=== PATIENT | male | born 1965 | race Caucasian/White ===

== ENCOUNTER 2022-05-02 08:46 | Day surgery (SDC) | payer OTHER ==
[~2022-05-02] VITALS: Ht 195.6 cm; Wt 106.2 kg
[~2022-05-02 08:46] MED LIST: CYCL10 PO; Cymbalta20 MG PO
== END 2022-05-02 11:35 | disposition home or self-care (01) ==
LOC: ORSCSDS 08:46
PROVIDERS: Internal Medicine Gastroenterology
PROC: 0DBN8ZX Excision of Sigmoid Colon, Via Natural or Artificial Opening Endoscopic, Diagnostic (ICD-10-PCS; principal; 2022-05-02 10:00)
DX: Z12.11 Encounter for screening for malignant neoplasm of colon (principal); Z80.0 Family history of malignant neoplasm of digestive organs; D12.5 Benign neoplasm of sigmoid colon; F17.210 Nicotine dependence, cigarettes, uncomplicated; Z79.899 Other long term (current) drug therapy
CPT/HCPCS: 88305; J2704; J7120

== ENCOUNTER 2024-05-18 20:30 | Inpatient (IN) | payer OTHER ==
[~2024-05-18] VITALS: Ht 195.6 cm; Wt 133.9 kg
[2024-05-18 21:13] LABS: Source, Urine Clean Catch
[2024-05-18 21:25] LABS: BASOPHILS ABSOLUTE AUTO 0.06 K/mm3 (0.00-0.23); BASOPHILS PERCENT AUTO 1 % (0-2); EOSINOPHILS ABSOLUTE AUTO 0.06 K/mm3 (0.00-0.68); EOSINOPHILS PERCENT AUTO 1 % (0-6); Hematocrit 29.3 % (37.0-53.0); IMMATURE GRAN ABSOLUTE AUTO 0.18 K/mm3 (0.00-0.10); IMMATURE GRAN PERCENT AUTO 2 % (0-1); LYMPHOCYTES ABSOLUTE AUTO 1.19 K/mm3 (0.84-5.20); LYMPHOCYTES PERCENT AUTO 10 % (21-46); MONOCYTES ABSOLUTE AUTO 0.93 K/mm3 (0.16-1.47); MONOCYTES PERCENT AUTO 8 % (4-13); Mean Corpuscular HGB 36.4 pg (26.0-34.0); Mean Corpuscular HGB Conc 37.5 g/dL (31.5-36.5); Mean Corpuscular Volume 97 fL (80-100); Mean Platelet Volume 10.6 fL (9.1-12.4); NEUTROPHILS ABSOLUTE AUTO 9.48 K/mm3 (1.96-9.15); NEUTROPHILS PERCENT AUTO 80 % (41-73); NRBC ABSOLUTE 0.08 K/mm3 (0.00-0.02); NRBC Auto 0.7 /100 WBC (0.0-0.2); Platelet Count 163 K/mm3 (150-400); RDW Coefficient Variation 17.6 % (11.7-14.2); RDW Standard Deviation 61.8 fL (35.1-46.3); Red Blood Cell Count 3.02 M/mm3 (4.30-5.90)
[2024-05-18 21:27] LABS: Appearance, Urine Cloudy (Clear); Blood, Urine 2+ (Neg); Color, Urine Amber (P-Yellow); Glucose Qualitative, Urine Neg (Neg); Ketones, Urine 2+ (Neg); Leukocyte Esterase, Urine 3+ (Neg); Nitrite, Urine Pos (Neg); Protein, Urine 2+ (Neg); Urobilinogen, Urine 4+ (Normal)
[2024-05-18 21:48] LABS: U Amphetamine Screen Not Detected; U Barbituate Screen Not Detected; U Benzodiazapine Screen Not Detected; U Buprenorphine Screen Not Detected; U Cannabinoids Screen Not Detected; U Cocaine Screen Not Detected; U Methadone Screen Not Detected; U Methamphetamine Screen Not Detected; U Opiates Screen Not Detected; U Oxycodone Screen Not Detected; U Phencyclidine Screen Not Detected
[2024-05-18 21:50] LABS: Bilirubin, Urine 3+ (Neg)
[2024-05-18 21:50] LABS: Ethanol (Alcohol), Blood, Med <3 mg/dL
[2024-05-18 21:52] LABS: Bacteria Many /hpf; Red Blood Cells, Urine 0-2 /hpf (0-2); Squamous Epithelial Cells Mod /hpf (Few); White Blood Cells, Urine 50-100 /hpf (0-5)
[2024-05-18] MEDS ORDERED: NS 1,000 ML IV SCH (22:00)
[2024-05-18] MEDS ORDERED: CefTRIAXone Sodium 1,000 MG in NS 50 ML IV ONE (22:00)
[2024-05-18] MEDS ORDERED: Thiamine HCl 100 MG Tab PO ONE (22:15)
[2024-05-18] MEDS ORDERED: Folic Acid 1 MG TAB PO ONE (22:15)
[2024-05-18 22:24] LABS: Alanine Aminotransfer (ALT/SGP 111 U/L (12-78); Albumin, Blood 2.4 g/dL (3.4-5.0); Albumin/Globulin Ratio 0.5 (0.8-1.8); Alk Phos 256 U/L (50-136); Anion Gap 19 mmol/L (3-11); Aspartate Aminotrans (AST/SGOT 219 U/L (12-37); Bilirubin, Total 8.8 mg/dL (0.1-1.0); Blood Urea Nitrogen 11 mg/dL (8-24); Bun/Creatinine Ratio 16.1 (12.0-20.0); CO2, Blood 22 mmol/L (21-32); Calcium, Blood 7.4 mg/dL (8.5-10.1); Chloride, Blood 77 mmol/L (98-108); Creatinine, Blood 0.68 mg/dL (0.60-1.20); Globulin, Blood 4.9 g/dL (2.2-4.0); Glomerular Filtration Rate 108 (60-); Glucose, Blood 103 mg/dL (70-99); Potassium, Blood 5.1 mmol/L (3.5-5.5); Sodium, Blood 113 mmol/L (136-145); Total Protein, Blood 7.3 g/dL (6.4-8.2)
[2024-05-18] MEDS ORDERED: Vancomycin HCL 1,750 MG in NS 518 ML IV ONE (22:40)
[2024-05-18] MEDS ORDERED: Folic Acid 1 MG in NS 50 ML IV ONE (22:55)
[2024-05-18] MEDS ORDERED: Sodium Chloride 3% 500 ML IV ONE (22:55)
[2024-05-18] MEDS ORDERED: Thiamine HCl 100 MG in NS 50 ML IV ONE (22:55)
[2024-05-18 23:17] LABS: Ethanol (Alcohol), Blood, Med <3 mg/dL
[2024-05-18] MEDS ORDERED: Sodium Chloride 3% 50 ML IV ONE (23:45)
[2024-05-19] VITALS (33 sets, daily range): BP systolic 98–148; BP diastolic 63–130
[2024-05-19 00:17] LABS: International Normalized Ratio 1.48; Prothrombin Time Results 15.4 Sec (9.7-11.5)
[2024-05-19] MEDS ORDERED: Magnesium Sulf 2 GM/Water 50ML 50 ML IV ONE ×2 (00:25→03:40)
[2024-05-19] MEDS ORDERED: FLU VACC TS2024-25(6MOS UP)/PF 45 MCG/0.5 ML SYRINGE IM ONE (00:50)
[2024-05-19] MEDS ORDERED: LORazepam 2 MG/ML 1ML Injection IV PRN (00:50)
[2024-05-19] MEDS ORDERED: Vancomycin HCL 750 MG in NS 250 ML IV ONE (01:45)
--- NOTE | 2024-05-19 02:13 | NUR ---
THIS RN ASSUMED CARE OF PT AT 0043 05/19/24, PT IS ALERT AND ORIENTED X4, FOLLOWS COMMANDS, PT IS VERY WEAK. PT HEART RATE IS IN A-FIB, 80-100s, BLOOD PRESSURE STABLE AT 138/107, PT DENIES CHEST PAIN. PT IS ON ROOM AIR, SOUNDS CLEAR/DIMINISHED, SATTING >95%, PT DENIES SHORTNESS OF BREATH. PT DOES HAVE A VERY INTENSE PRESSURE INJURY ON SACRUM AREA, ALSO SEEN BY JOYCE RANDLE RN. PICTURES WERE TAKEN AND PUT INTO THE CHART. PT SODIUM LEVEL CRITICALLY LOW, PT GETTING 3% SALINE. NO OTHER INTERVENTIONS AT THIS TIME. PLAN OF CARE CONTINUED.
[2024-05-19 02:29] LABS: Albumin, Blood 2.1 g/dL (3.4-5.0); Albumin/Globulin Ratio 0.4 (0.8-1.8); Bilirubin, Total 8.3 mg/dL (0.1-1.0); Bun/Creatinine Ratio 21.7 (12.0-20.0); Creatinine, Blood 0.55 mg/dL (0.60-1.20); Globulin, Blood 4.7 g/dL (2.2-4.0); Potassium, Blood 4.7 mmol/L (3.5-5.5); Total Protein, Blood 6.8 g/dL (6.4-8.2)
--- NOTE | 2024-05-19 02:39 | NUR ---
PT HAS A VERY INTENSE PRESSURE INJURY ON SACRUM AREA, PICTURES ARE IN THE CHART. DR. CUEVAS HAS BEEN NOTIFIED, PROVIDER SAID ANTIBIOTICS ARE BEING GIVEN FOR WOUND. PT ALSO IN A-FB USED TO TAKE LOPRESSOR 25MG AT HOME. PROVIDER SAID TO HOLD OFF AND CALL BACK IF RATE BECOMES UNCONTROLLED.
[2024-05-19] MEDS ORDERED: ChlordiazePOXIDE 25 MG Cap PO PRN (05:15)
[2024-05-19 05:39] LABS: Albumin, Blood 2.1 g/dL (3.4-5.0); Albumin/Globulin Ratio 0.5 (0.8-1.8); Bilirubin, Total 8.1 mg/dL (0.1-1.0); Bun/Creatinine Ratio 14.9 (12.0-20.0); Calcium, Blood 7.1 mg/dL (8.5-10.1); Creatinine, Blood 0.74 mg/dL (0.60-1.20); Globulin, Blood 4.6 g/dL (2.2-4.0); Total Protein, Blood 6.7 g/dL (6.4-8.2)
--- NOTE | 2024-05-19 06:10 | NUR ---
PT SUMMARY PT IS ALERT AND ORIENTED X3-4, CONFUSED AT TIMES BUT REDIRECTABLE. PT ELECTROLYTES ARE STILL ABNORMAL, MAGNESIUM WAS 1.3, WAS REPLACED WTIH ANOTHER 2G MAG SULFATE. PT SODIUM AT 0545 WAS 115, DR. CUEVAS NOTIFIED, PROVIDER PUT IN FOR ANOTHER ORDER OF 3% SALINE. PROVIDER IS AWARE OF RUNNING MEDICATION PERIPHERALLY. PT DID NOT PASS NURSE SWALLOW STUDY, SPEECH THERAPY EVAL HAS BEEN ORDERED PER FAITH. NO OTHER INTERVENTIONS AT THIS TIME. PLAN OF CARE CONTINUED.
[2024-05-19] MEDS ORDERED: Sodium Chloride 3% 100 ML IV SCH (06:55)
[2024-05-19] MEDS ORDERED: Enoxaparin 40 MG/0.4 ML SYR SC SCH (09:00)
[2024-05-19] MEDS ORDERED: Thiamine HCl 100 MG in NS 50 ML IV SCH (09:00)
[2024-05-19] MEDS ORDERED: Folic Acid 1 MG in NS 50 ML IV SCH (09:00)
--- NOTE | 2024-05-19 11:28 | NUR ---
Pt. is awake in bed when he cautiously welcomed my visit. Pt. is guarded but pleasant. Facilitated a life review and listened with empathy and a calming presence. Considered matters of family dysfunction in his life. Pt. inquired what this sas etl developer's role is. After more lengthy life review, the Pt. verbalized gratitude for the spiritual care visit and welcomed this sas etl developer to return.
[2024-05-19 11:32] LABS: Albumin, Blood 2.2 g/dL (3.4-5.0); Albumin/Globulin Ratio 0.5 (0.8-1.8); Bilirubin, Total 7.7 mg/dL (0.1-1.0); Bun/Creatinine Ratio 20.3 (12.0-20.0); Calcium, Blood 7.6 mg/dL (8.5-10.1); Creatinine, Blood 0.59 mg/dL (0.60-1.20); Globulin, Blood 4.8 g/dL (2.2-4.0); Potassium, Blood 4.6 mmol/L (3.5-5.5)
[2024-05-19] MEDS ORDERED: Sodium Chloride 3% 100 ML IV ONE (12:00)
--- NOTE | 2024-05-19 12:51 | NUR ---
PT REMAINS VERY WITHDRAWN AND DEPRESSED. HE HAS SHED TEARS WITH AND WELCOMED THE VISIT FROM THE RECORDING STUDIO INTER[employer]. CURRENTLY UNDERGOING THE ECHO. REFUSED HIS LUNCH AFTER HAVING A SNACK OF EGGS AND CHEESE. ENCOURAGEMENT GIVEN.
[2024-05-19 13:07] LABS: Bun/Creatinine Ratio 21.3 (12.0-20.0); Calcium, Blood 7.4 mg/dL (8.5-10.1); Creatinine, Blood 0.61 mg/dL (0.60-1.20); Potassium, Blood 4.4 mmol/L (3.5-5.5)
[2024-05-19] MEDS ORDERED: Vancomycin HCL 1,750 MG in NS 500 ML IV SCH (14:00)
--- NOTE | 2024-05-19 18:37 | NUR ---
NAS HAS REMAINED STOIC FOR THE MAJORITY OF THE DAY. HE HAS ASKED THAT NO INFORMATION BE GIVEN TO ANYONE, ONLY VISITOR IS PABLO WHO IS HIS ROOMMATE. HE CONTINUES IN AFIB, BLOOD PRESSURE SYSTOLIC 140-150S. CONDOM CATH IN PLACE WITH DARK AUGUSTO RETURN. ONE INCIDENT OF INCONTINENCE RELATED TO CONDOM CATH DISPLACEMENT. FULL BED CHANGE AND WOUND CARE GIVEN. PT VERY PAINFUL WITH CARE TO BUTTOCKS/COCCYX. PT VISIBLY EMOTIONAL WITH TODAY. REFUSED THERAPY TODAY.
[2024-05-19] MEDS ORDERED: NS 1,000 ML IV SCH (20:30)
[2024-05-19] MEDS ORDERED: CefTRIAXone Sodium 1,000 MG in NS 100 ML IV SCH (21:00)
[2024-05-19] MEDS ORDERED: Arginine/Glutamine/Calcium Hmb 1 Packet PO SCH (21:00)
--- NOTE | 2024-05-19 22:29 | NUR ---
ASSUMPTION OF CARE CARE OF PATIENT ASSUMED FOLLOWING REPORT FROM KEO. PT IN NO APPARENT DISTRESS. VS STABLE, A FIB CONTROLLED. CALL LIGHT HANDY. PT ASKS FOR SOMETHING FOR SLEEP TONIGHT.
[2024-05-20] VITALS (9 sets, daily range): BP systolic 101–122; BP diastolic 58–90
[2024-05-20 03:55] LABS: Bun/Creatinine Ratio 23.9 (12.0-20.0); Calcium, Blood 7.7 mg/dL (8.5-10.1); Creatinine, Blood 0.59 mg/dL (0.60-1.20)
[2024-05-20 04:48] LABS: Albumin, Blood 1.9 g/dL (3.4-5.0); Albumin/Globulin Ratio 0.5 (0.8-1.8); Bilirubin, Direct 4.5 mg/dL (0.0-0.3); Bilirubin, Indirect 1.4 mg/dL (0.1-0.7); Bilirubin, Total 5.9 mg/dL (0.1-1.0); Globulin, Blood 4.2 g/dL (2.2-4.0); Total Protein, Blood 6.1 g/dL (6.4-8.2)
--- NOTE | 2024-05-20 07:28 | NUR ---
SHIFT SUMMARY PT LYING IN BED IN NO APPARENT DISTRESS. ALERT AND ORIENTED THOUGH STILL SLOW TO ANSWER QUESTIONS AND FOLLOW COMMANDS. CONTROLLED A FIB BELOW 100 WITH STABLE BP. LUNGS CLEAR TO COARSE RHONCI MEDIALLY. 1-2 L NC USED DURING CLEEP DUE TO DESAT POSSIBLY DUE TO JOSE. NO BM DURING SHIFT. NO CHEST PAIN/PRESSURE, SOB, AB PAIN, N/V. ALSO CIWA SCORES REMAIN LOW. CONDOM CATH DRAINING AUGUSTO URINE TO GRAVITY- URINE LESS DARK THAN BEGINNING OF SHIFT. GLUTEAL/COCYGEAL SKIN WOUNDS STILL WEEPING. FREQUENT TURNS UTILIZED DURING SHIFT. PT WANTS TO KNOW HOW LONG HE HAS TO BE TETHERED TO ALL THE EQUIPMENT. PT HAS CALL LIGHT NEARBY AND VOLUME OF TV VERY HIGH. EARS WERE EXAMINED AND THE RIGHT EAR HAS COPIOUS AMOUNTS OF IMPACTED CERUMEN.
[2024-05-20 10:54] LABS: Magnesium, Blood 1.6 mg/dL (1.6-2.4)
[2024-05-20 10:55] LABS: Phosphorus, Blood 2.3 mg/dL (2.5-4.9)
[2024-05-20] MEDS ORDERED: OxyCODONE HCL 5 MG TAB PO PRN (11:45)
--- NOTE | 2024-05-20 13:08 | NUR ---
SPOKE WITH ON THE PHONE, ORDERS RECEIVED. WHEN PATIENT TRANSITIONING BACK TO BED, WOUND CULTURE OBTAINED, MRSA SWAB TO THE NARES COLLECTED AFTER RETURN TO BED AND URINE CULTURE SENT PER ORDER OF . PT IS SLIGHTLY BETTER IN AFFECT TODAY, DID WORK WITH THERAPY, DID COMMENT THAT HE DIDN'T LIKE IT. IS EATING FAIRLY WELL, TAKING OVER 50% OF HIS MEALS. SKIN LOOKING IMPROVED FROM YESTERDAY, ESPECIALLY FEET, FLIP FLOP INDENTATION HAS GONE. LESS FLAKEY SKIN ON THE CALVES. REMAINS EDEMATOUS. WOUND TO BUTTOCKS CONTINUES TO BLEED. PT STATES IT IS PAINFUL.
[2024-05-20 13:29] LABS: BASOPHILS ABSOLUTE AUTO 0.02 K/mm3 (0.00-0.23); BASOPHILS PERCENT AUTO 0 % (0-2); EOSINOPHILS ABSOLUTE AUTO 0.02 K/mm3 (0.00-0.68); EOSINOPHILS PERCENT AUTO 0 % (0-6); Hemoglobin 9.2 g/dL (13.5-17.5); IMMATURE GRAN ABSOLUTE AUTO 0.28 K/mm3 (0.00-0.10); IMMATURE GRAN PERCENT AUTO 2 % (0-1); LYMPHOCYTES ABSOLUTE AUTO 1.76 K/mm3 (0.84-5.20); LYMPHOCYTES PERCENT AUTO 14 % (21-46); MONOCYTES ABSOLUTE AUTO 0.97 K/mm3 (0.16-1.47); MONOCYTES PERCENT AUTO 8 % (4-13); Mean Corpuscular HGB 36.8 pg (26.0-34.0); Mean Corpuscular HGB Conc 35.4 g/dL (31.5-36.5); Mean Platelet Volume 11.4 fL (9.1-12.4); NEUTROPHILS ABSOLUTE AUTO 9.89 K/mm3 (1.96-9.15); NEUTROPHILS PERCENT AUTO 76 % (41-73); NRBC Auto 0.8 /100 WBC (0.0-0.2); Platelet Count 151 K/mm3 (150-400); RDW Coefficient Variation 18.6 % (11.7-14.2); RDW Standard Deviation 68.9 fL (35.1-46.3); White Blood Cell Count 12.94 K/mm3 (4.00-11.30)
[2024-05-20 13:33] LABS: Mean Corpuscular Volume 104 fL (80-100)
[2024-05-20 13:59] LABS: Vancomycin, Trough 17.8 ug/mL (5.0-10.0)
--- NOTE | 2024-05-20 16:07 | NUR ---
REPORT TO LOU,RN AND NAEEM,RN. PT AWAKENED AND REACHED OUT FOR THIS RN, ASKED IF HE HAD BEEN DRINKING AND WAS TEARFUL, STATED HE HAD NOT AND THAT HE WAS STILL IN THE HOSPITAL, THEN TOLD ABOUT MOVING ROOMS. HE SAID HE DID NOT WANT TO MOVE ROOMS. ENCOURAGEMENT GIVEN. PT'S BELONGINGS GATHERED AND MOVED TO PCU ROOM 6 WITH POWER HANNA.
--- NOTE | 2024-05-20 16:12 | NUR ---
REPORT RECEIVED FROM PHOTOGRAPHY ASSISTANT AT 1545. PT ARRIVES TO UNIT AT 1600. BP STABLE, HR 100'S-110'S. SLIDER SHEET USED TO TRANSFER PT FROM ICU BED TO PCU BED. PT IS ALERT AND ORIENTED WITH FLAT AFFECT AND LIMITED RESPONSES. OBEYS COMMANDS AND VERBALIZES NEEDS WELL. PT HAS 3+ EDEMA IN BLE. HE IS ON ROOM AIR AND SATTING ABOUT 90%. PT HAS EXCORIATED BUTTOCKS AND PRESSURE WOUND. SEE PHOTOS IN CHART.
--- NOTE | 2024-05-20 18:10 | NUR ---
NO ACUTE EVENTS FROM TRANSFER TO PCU TO THIS TIME.
[2024-05-20] MEDS ORDERED: Carbamide Peroxide Otic Soln BOTHEARS SCH (21:00)
[2024-05-20] MEDS ORDERED: Gabapentin 300 MG Cap PO SCH (21:00)
[2024-05-21] VITALS: BP 106/70
--- NOTE | 2024-05-21 01:25 | NUR ---
SHIFT SUMMARY NEURO: A/OX4. DELAYED RESPONSES (CHARTED PREVIOUSLY BASELINE). FLAT AFFECT. NEUROPATHY BLE BASELINE. MOVES ALL EXTREMETIES WITH EQUAL STRENGTH. WEAKNESS/DECONDITIONED BUT ABLE TO ASSIST SOME WITH TURNS. PUPILS PERRLA. FINE TREMORS NOTED WITH ARMS EXTENDED. DENIES HEADACHE AND HALLUCINATIONS. CARDIAC: AFIB 90'S-120'S. DENIES CP/SOB. +3 EDEMA BLE, +2 EDEMA. LUNGS: ON 2L NC. DIMINISHED BASES. GI/: NO N/V. DISTENDED ABD. ACTIVE BOWEL SOUNDS. CONDOM CATH IN PLACE DRAINING ORANGE URINE. SKIN: JAUNDICED THROUGHOUT. SWEATY PALMS. BOTTOM EXCORIATED AND CIWA 5, Q2 TURNS
[2024-05-21 03:15] VITALS: BP 109/74
[2024-05-21 04:11] LABS: BASOPHILS ABSOLUTE AUTO 0.06 K/mm3 (0.00-0.23); BASOPHILS PERCENT AUTO 1 % (0-2); EOSINOPHILS ABSOLUTE AUTO 0.05 K/mm3 (0.00-0.68); EOSINOPHILS PERCENT AUTO 1 % (0-6); Hematocrit 25.6 % (37.0-53.0); IMMATURE GRAN ABSOLUTE AUTO 0.45 K/mm3 (0.00-0.10); IMMATURE GRAN PERCENT AUTO 4 % (0-1); LYMPHOCYTES ABSOLUTE AUTO 1.76 K/mm3 (0.84-5.20); LYMPHOCYTES PERCENT AUTO 16 % (21-46); MONOCYTES ABSOLUTE AUTO 1.02 K/mm3 (0.16-1.47); MONOCYTES PERCENT AUTO 9 % (4-13); Mean Corpuscular HGB 37.5 pg (26.0-34.0); Mean Corpuscular HGB Conc 35.2 g/dL (31.5-36.5); Mean Corpuscular Volume 107 fL (80-100); NEUTROPHILS ABSOLUTE AUTO 7.73 K/mm3 (1.96-9.15); NEUTROPHILS PERCENT AUTO 70 % (41-73); NRBC ABSOLUTE 0.13 K/mm3 (0.00-0.02); NRBC Auto 1.2 /100 WBC (0.0-0.2); Platelet Count 141 K/mm3 (150-400); RDW Coefficient Variation 18.9 % (11.7-14.2); RDW Standard Deviation 72.3 fL (35.1-46.3); White Blood Cell Count 11.07 K/mm3 (4.00-11.30)
[2024-05-21 04:25] LABS: International Normalized Ratio 1.25; Prothrombin Time Results 13.2 Sec (9.7-11.5)
[2024-05-21 04:40] LABS: Albumin, Blood 2.1 g/dL (3.4-5.0); Albumin/Globulin Ratio 0.5 (0.8-1.8); Bilirubin, Total 5.6 mg/dL (0.1-1.0); Bun/Creatinine Ratio 49.2 (12.0-20.0); Calcium, Blood 8.3 mg/dL (8.5-10.1); Creatinine, Blood 0.37 mg/dL (0.60-1.20); Globulin, Blood 4.2 g/dL (2.2-4.0); Magnesium, Blood 1.6 mg/dL (1.6-2.4); Phosphorus, Blood 3.2 mg/dL (2.5-4.9); Total Protein, Blood 6.3 g/dL (6.4-8.2)
[2024-05-21 07:33] VITALS: BP 114/76
[2024-05-21] MEDS ORDERED: NS 1,000 ML IV SCH (08:00)
[2024-05-21] MEDS ORDERED: Calcium Carbonate 1,250 MG TABLET PO SCH (09:00)
[2024-05-21 10:34] LABS: Base Excess Venous 2.3 mmol/L; Bicarbonate Venous 25.7 mmol/L (24.0-30.0); PCO2 Venous 49.9 mmHg (38-42); pH Blood Venous 7.35 (7.34-7.37)
[2024-05-21 11:04] VITALS: BP 163/99
[2024-05-21 11:10] LABS: Bun/Creatinine Ratio 47.6 (12.0-20.0); Calcium, Blood 8.8 mg/dL (8.5-10.1); Creatinine, Blood 0.44 mg/dL (0.60-1.20); Potassium, Blood 3.9 mmol/L (3.5-5.5)
[2024-05-21 11:14] LABS: HEPATITIS A ANTIBODY, IGM Negative (Negative); HEPATITIS B CORE ANTIBODY, IGM Negative (Negative); HEPATITIS B SURFACE ANTIGEN Negative (Negative); HEPATITIS C AB CIA INTERP Negative (Negative); HEPATITIS C ANTIBODY CIA INDEX 0.09 IV
[2024-05-21 11:58] LABS: Anti-Xa UFH, PHA Monitoring <0.10 IU/mL
[2024-05-21] MEDS ORDERED: Heparin Sodium 5000 Units/ML 1ML MDV IV ONE (12:10)
[2024-05-21] MEDS ORDERED: Heparin Sodium,Porcine/0.5 NS 500 ML IV SCH (12:10)
[2024-05-21] MEDS ORDERED: Azithromycin 500 MG in NS 250 ML IV SCH ×2 (14:07→14:08)
[2024-05-21] MEDS ORDERED: Furosemide 10 MG / ML 2ML Vial IV ONE (14:30)
[2024-05-21 15:20] VITALS: BP 99/63
[2024-05-21] MEDS ORDERED: Sodium Chloride 1 GM TAB PO SCH (16:30)
--- NOTE | 2024-05-21 16:53 | NUR ---
SHIFT SUMMARY: PT ALERT AND ORIENTED X4, ABLE TO FOLLOW COMMANDS AND MAKE NEEDS KNOWN. STRENGTH WEAK, EQUAL BILATERALLY. PT WITH FLAT AFFECT, WITHDRAWN FROM CARE. NEEDING MOTIVATION TO PEFORM ADL'S. BP STABLE. HR REMAINS AFIB 80'S. +3 EDEMA IN BLE. +2 IN BUE. DENIES CP/PRESSURE. PULSES PALPABLE. SPO2 >94% ON 2L MAJORITY OF THIS SHIFT. PT WITH EPISODE OF DYSPNEA THIS AM AFTER BEDBATH. NEEDING 15L HIFLOW NC. SPO2 <80. MD AT BEDSIDE, LABS AND IMAGING ORDERED. OXYGEN SLOWLY TITRATED DOWN THIS SHIFT, CURRENTLY ON 2L SPO2 >94%. LUNG SOUNDS DIM IN BASES, COARSE IN UPPER. PT WITH NON PRODUCTIVE COUGH. ABD DISTENDED, BOWEL SOUNDS +. PUREWICK IN PLACE CONNECTED TO LCS, APPROX 1800ML OF URINIARY OUTPUT THIS SHIFT. NO BM. PT ABLE TO STAND AND TRANSFER VIA TWO PERSON ASSIST WITH FWW THIS AM. TOLERATED WELL. PT WITH REDDNESS/EXCORIATION ON BUTTOCKS, SEE PICS IN CHART. MEPILEX IN PLACE. REPO2 Q2 TO MAINTAIN SKIN INTEGRITY. BED IN LOW, CALL LIGHT IN REACH, WILL REPORT TO ONCOMING RN.
[2024-05-21 19:52] VITALS: BP 107/69
[2024-05-22 00:22] VITALS: BP 110/88
--- NOTE | 2024-05-22 01:20 | NUR ---
SHIFT SUMMARY NEURO: A/OX3, STATED HE WAS AT "[facility]" [facility] IN [place]. LUNGS: COARS UPPER LOBES, DIMINISHED BASES. CARDIAC: AFIB, SHORT EPISODES OF HR IN 130'S. GI/: PT STATES THEY ARE CONTINENT BUT DIDN'T CALL FOR A BM OR NOTIFY STAFF WHEN WICKING SYTEM LEAKED. PT EDUCATED TO PARTICIPATE IN CARE. PT SELF TURNING NOW AFTER EDUCATION.
[2024-05-22 03:27] LABS: Hematocrit 25.7 % (37.0-53.0); Hemoglobin 8.8 g/dL (13.5-17.5); Mean Corpuscular HGB 37.4 pg (26.0-34.0); Mean Corpuscular HGB Conc 34.2 g/dL (31.5-36.5); Mean Corpuscular Volume 109 fL (80-100); Mean Platelet Volume 10.9 fL (9.1-12.4); NRBC Auto 2.6 /100 WBC (0.0-0.2); Platelet Count 145 K/mm3 (150-400); RDW Coefficient Variation 18.6 % (11.7-14.2); RDW Standard Deviation 72.4 fL (35.1-46.3); Red Blood Cell Count 2.35 M/mm3 (4.30-5.90); White Blood Cell Count 11.55 K/mm3 (4.00-11.30)
[2024-05-22 03:51] LABS: Vancomycin, Trough 10.9 ug/mL (5.0-10.0)
[2024-05-22 03:53] LABS: Albumin/Globulin Ratio 0.5 (0.8-1.8); Bilirubin, Total 5.4 mg/dL (0.1-1.0); Bun/Creatinine Ratio 56.9 (12.0-20.0); Creatinine, Blood 0.4 mg/dL (0.60-1.20); Globulin, Blood 4.1 g/dL (2.2-4.0); Magnesium, Blood 1.5 mg/dL (1.6-2.4); Phosphorus, Blood 3.2 mg/dL (2.5-4.9); Potassium, Blood 4.2 mmol/L (3.5-5.5); Total Protein, Blood 6.1 g/dL (6.4-8.2)
[2024-05-22] MEDS ORDERED: Vancomycin HCL 2,000 MG in NS 500 ML IV SCH (04:01)
[2024-05-22 04:17] LABS: BAND PERCENT MAN 1 % (0-8); BASOPHILS ABSOLUTE MAN 0.11 K/mm3 (0.00-0.23); BASOPHILS PERCENT MAN 1 % (0-2); EOSINOPHILS ABSOLUTE MAN 0.11 K/mm3 (0.00-0.68); EOSINOPHILS PERCENT MAN 1 % (0-6); LYMPHOCYTES ABSOLUTE MAN 1.84 K/mm3 (0.84-5.20); LYMPHOCYTES PERCENT MAN 16 % (21-46); METAMYELOCYTE ABSOLUTE MAN 0.23 K/mm3 (0.00-0.00); METAMYELOCYTE PERCENT MAN 2 % (0-0); MONOCYTES ABSOLUTE MAN 1.27 K/mm3 (0.16-1.47); MONOCYTES PERCENT MAN 11 % (4-13); MYELOCYTE ABSOLUTE MAN 0.11 K/mm3 (0.00-0.00); MYELOCYTE PERCENT MAN 1 % (0-0); NEUTROPHILS ABSOLUTE MAN 7.85 K/mm3 (1.96-9.15); SEG NEUTROPHILS PERCENT MAN 67 % (41-73); TOTAL CELLS COUNTED 100
[2024-05-22 04:41] VITALS: BP 112/70
[2024-05-22 07:43] VITALS: BP 122/76
[2024-05-22] MEDS ORDERED: Enoxaparin 40 MG/0.4 ML SYR SC SCH (09:00)
[2024-05-22] MEDS ORDERED: Mag Sulfate 1 GM/D5% 100ML 100 ML IV STA (09:03)
[2024-05-22] MEDS ORDERED: Furosemide 10 MG/ML 4ML Vial IV ONE (10:00)
[2024-05-22 11:31] VITALS: BP 128/85
[2024-05-22] MEDS ORDERED: Spironolactone 50 MG Tab PO ONE (12:10)
[2024-05-22 13:35] LABS: Bun/Creatinine Ratio 55.7 (12.0-20.0); Creatinine, Blood 0.45 mg/dL (0.60-1.20); Potassium, Blood 3.9 mmol/L (3.5-5.5)
[2024-05-22 16:40] VITALS: BP 113/75
--- NOTE | 2024-05-22 18:22 | NUR ---
End of shift note. Pt is A&O but very slow to respond. Pt needs a significant amount of encouragement to do anything. Pt may benefit from an antidepressant. From his friend, it sounds like he was on one at some point. Pts friend/roommate stated that much of this lack of motivation/self care started after he lost his job in January. Pt has been encouraged to help provide as much self care as possible but he continues to refuse to use a urinal or move. Pt was OOB once with staff this morning but refused to work with PT this afternoon. Pt has been provided a large amount of education about the importance of moving and caring for himself but Pt seems to be unreceptive. Poor PO intake. Ensure shakes have been encouraged. BM this shift. Pt repositioned as tolerated. Pt is able to make needs known, call light is within reach.
[2024-05-22 20:46] VITALS: BP 100/64
[2024-05-23] VITALS (7 sets, daily range): BP systolic 110–133; BP diastolic 72–93
[2024-05-23 04:50] LABS: Hematocrit 28.5 % (37.0-53.0); Hemoglobin 9.5 g/dL (13.5-17.5); Mean Corpuscular HGB 37.3 pg (26.0-34.0); Mean Corpuscular HGB Conc 33.3 g/dL (31.5-36.5); Mean Corpuscular Volume 112 fL (80-100); Mean Platelet Volume 10.9 fL (9.1-12.4); NRBC ABSOLUTE 0.36 K/mm3 (0.00-0.02); NRBC Auto 2.8 /100 WBC (0.0-0.2); Platelet Count 167 K/mm3 (150-400); RDW Coefficient Variation 19.4 % (11.7-14.2); Red Blood Cell Count 2.55 M/mm3 (4.30-5.90); White Blood Cell Count 12.91 K/mm3 (4.00-11.30)
[2024-05-23 05:22] LABS: Bun/Creatinine Ratio 57.6 (12.0-20.0); Creatinine, Blood 0.42 mg/dL (0.60-1.20); Potassium, Blood 3.7 mmol/L (3.5-5.5)
[2024-05-23 05:36] LABS: BAND PERCENT MAN 1 % (0-8); BASOPHILS PERCENT MAN 0 % (0-2); EOSINOPHILS PERCENT MAN 0 % (0-6); LYMPHOCYTES ABSOLUTE MAN 1.42 K/mm3 (0.84-5.20); LYMPHOCYTES PERCENT MAN 11 % (21-46); METAMYELOCYTE ABSOLUTE MAN 0.12 K/mm3 (0.00-0.00); METAMYELOCYTE PERCENT MAN 1 % (0-0); MONOCYTES ABSOLUTE MAN 0.64 K/mm3 (0.16-1.47); MONOCYTES PERCENT MAN 5 % (4-13); MYELOCYTE ABSOLUTE MAN 0.25 K/mm3 (0.00-0.00); MYELOCYTE PERCENT MAN 2 % (0-0); NEUTROPHILS ABSOLUTE MAN 10.45 K/mm3 (1.96-9.15); SEG NEUTROPHILS PERCENT MAN 80 % (41-73); TOTAL CELLS COUNTED 100
[2024-05-23] MEDS ORDERED: Furosemide 20 MG Tab PO SCH (08:00)
[2024-05-23] MEDS ORDERED: Spironolactone 50 MG Tab PO SCH (08:00)
[2024-05-23] MEDS ORDERED: Folic Acid 1 MG TAB PO SCH (09:00)
[2024-05-23] MEDS ORDERED: Thiamine HCl 100 MG Tab PO SCH (09:00)
[2024-05-23] MEDS ORDERED: Lactobacil 2-S.Thermo-Bifido 1 1 Cap PO SCH (09:00)
[2024-05-23] MEDS ORDERED: Ondansetron 8 MG SoluTab MM PRN (09:45)
[2024-05-23] MEDS ORDERED: Ondansetron HCl 2 MG / ML 2ML Vial IV PRN ×2 (09:45→09:50)
--- NOTE | 2024-05-23 18:40 | NUR ---
SHIFT SUMMARY: PT HAS BEEN ALERT MAJORITY OF SHIFT, ORIENTED x4, SLOW TO ENGAGE, VERY LOW MOTIVATION. PT ENOURAGED TO PARTICIPATE IN CARE/TURNS/GETTING OUT OF BED. PT TO RECLINER x2 TODAY, NOW SLEEPING HEAVILY, EASY TO WAKE BUT HE ISN'T STAYING ALERT FOR LONG, DINNER TRAY UNTOUCHED, LOW PO INTAKE OVERALL. PUREWICK CONTINUES PER PT REQUEST. WOUND CARE COMPLETED. PALLIATIVE CARE CONSULTATION PLACED TODAY. OF TODAY, PT IS AGREEABLE TO SNF PLACEMENT UPON DC. PT RESTING IN BED, CALL LIGHT IN REACH.
--- NOTE | 2024-05-23 23:08 | NUR ---
SHIFT SUMMARY NO ACUTE CHANGES. PT STILL REFUSING TO USE URINAL AND REFUSING TO ASSIST WITH TURNS. PT ENCOURAGED TO COMPLETE ADL'S AND EDUCATED ON RISK OF DECONDITIONING FURTHER.
[2024-05-24 04:03] VITALS: BP 111/82
[2024-05-24 07:39] VITALS: BP 116/78
[2024-05-24 09:36] LABS: BASOPHILS PERCENT AUTO 1 % (0-2); EOSINOPHILS ABSOLUTE AUTO 0.07 K/mm3 (0.00-0.68); EOSINOPHILS PERCENT AUTO 1 % (0-6); Hematocrit 30.3 % (37.0-53.0); Hemoglobin 9.7 g/dL (13.5-17.5); IMMATURE GRAN ABSOLUTE AUTO 0.58 K/mm3 (0.00-0.10); IMMATURE GRAN PERCENT AUTO 4 % (0-1); LYMPHOCYTES ABSOLUTE AUTO 1.39 K/mm3 (0.84-5.20); LYMPHOCYTES PERCENT AUTO 11 % (21-46); MONOCYTES ABSOLUTE AUTO 1.01 K/mm3 (0.16-1.47); MONOCYTES PERCENT AUTO 8 % (4-13); Mean Corpuscular HGB 37.5 pg (26.0-34.0); Mean Platelet Volume 10.2 fL (9.1-12.4); NEUTROPHILS ABSOLUTE AUTO 10.04 K/mm3 (1.96-9.15); NEUTROPHILS PERCENT AUTO 76 % (41-73); NRBC ABSOLUTE 0.16 K/mm3 (0.00-0.02); NRBC Auto 1.2 /100 WBC (0.0-0.2); Platelet Count 163 K/mm3 (150-400); RDW Coefficient Variation 19.9 % (11.7-14.2); RDW Standard Deviation 83.4 fL (35.1-46.3); Red Blood Cell Count 2.59 M/mm3 (4.30-5.90); White Blood Cell Count 13.19 K/mm3 (4.00-11.30)
[2024-05-24 09:38] LABS: Mean Corpuscular Volume 117 fL (80-100)
[2024-05-24] MEDS ORDERED: Azithromycin 500 MG in NS 250 ML IV SCH (09:49)
[2024-05-24 09:54] LABS: Albumin, Blood 2.3 g/dL (3.4-5.0); Albumin/Globulin Ratio 0.5 (0.8-1.8); Bilirubin, Total 4.2 mg/dL (0.1-1.0); Bun/Creatinine Ratio 42.4 (12.0-20.0); Calcium, Blood 9.2 mg/dL (8.5-10.1); Creatinine, Blood 0.54 mg/dL (0.60-1.20); Globulin, Blood 4.6 g/dL (2.2-4.0); Total Protein, Blood 6.9 g/dL (6.4-8.2)
[2024-05-24] MEDS ORDERED: DULoxetine HCL 30 MG Cap DR PO SCH (10:00)
[2024-05-24 10:46] LABS: Iron Serum 153 ug/dL (65-175); Percent Saturation 98.1 % (20.0-50.0); Total Iron Binding Capacity 156 ug/dL (250-450)
[2024-05-24 10:55] LABS: Ferritin, Serum 2036 ng/mL (26-388)
[2024-05-24] MEDS ORDERED: Metoprolol Succinate 25 MG TABCR PO SCH (11:00)
--- NOTE | 2024-05-24 12:26 | NUR ---
TRANSFER: PT HAS BEEN A&O, VERY SLOW TO RESPOND TO QUESTIONS OR WILL NOT ANSWER QUESTIONS AT ALL. PT REFUSING CARE AT TIMES, DECLINES TO EXIT BED FOR BREAKFAST, STATES "MAYBE" WHEN ASKED IF HE WILL WORK WITH THERAPY TEAMS TODAY. EDUCATION PROVIDED RE: BENEFIT AND IMPORTANCE OF ACTIVITY/PARTICIPATION IN CARE, PT DOESN'T REPLY AND APPEARS UNINTERESTED. O2 SATS >92% ON 2 L/MIN VIA NC. AFIB ON MONITOR, RATE 90s-100s. PT MEDICATED PER EMAR. BEDBATH COMPLETED THIS AM. CARE MANAGEMENT TO BEDSIDE ATTEMPT TO ESTABLISH PLAN OF CARE, PT W/LOW PARTICIPATION, WAITING FOR PALLIATIVE CONSULT. PT ADMISSION STATUS CHANGED TO MEDICAL, NEW ROOM ASSIGNMENT RECEIVED, REPORT GIVEN TO DANIELA EPPS AND PT TRANSFERED W/OUT INCIDENT.
[2024-05-24 12:35] VITALS: BP 124/87
[2024-05-24 14:30] LABS: Base Excess Venous 9.3 mmol/L; Bicarbonate Venous 31.3 mmol/L (24.0-30.0); pH Blood Venous 7.31 (7.34-7.37)
[2024-05-24 16:02] VITALS: BP 120/82
[2024-05-24] MEDS ORDERED: Lactulose 20 GM/30 ML UDC PO SCH (17:00)
--- NOTE | 2024-05-24 17:20 | NUR ---
PTS STAUS WAS THE BHUPENDRA FROM REPORT. THIS NURSE REQUESTED LABS FOR UPDATED VNG BECUSE PTS MENTATION WAS SLIGHTY DECLINING. EE RESULTS. ORDERED BI PAP WITH LACTULOSE.
[2024-05-24] MEDS ORDERED: Lactulose 200 GM/300 ML Enema 300ML BTL PR SCH (18:00)
[2024-05-24] MEDS ORDERED: Pantoprazole Sodium 40 MG Injection IV SCH (19:00)
[2024-05-24 19:34] VITALS: BP 110/69
[2024-05-24 21:24] LABS: Base Excess Venous 11.8 mmol/L; Bicarbonate Venous 33.6 mmol/L (24.0-30.0); PCO2 Venous 64.1 mmHg (38-42); pH Blood Venous 7.37 (7.34-7.37)
[2024-05-24 23:11] VITALS: BP 110/83
[2024-05-25 04:14] LABS: BASOPHILS ABSOLUTE AUTO 0.12 K/mm3 (0.00-0.23); BASOPHILS PERCENT AUTO 1 % (0-2); EOSINOPHILS ABSOLUTE AUTO 0.08 K/mm3 (0.00-0.68); EOSINOPHILS PERCENT AUTO 1 % (0-6); Hematocrit 32.4 % (37.0-53.0); Hemoglobin 10.1 g/dL (13.5-17.5); IMMATURE GRAN ABSOLUTE AUTO 0.42 K/mm3 (0.00-0.10); IMMATURE GRAN PERCENT AUTO 4 % (0-1); LYMPHOCYTES ABSOLUTE AUTO 1.52 K/mm3 (0.84-5.20); LYMPHOCYTES PERCENT AUTO 13 % (21-46); MONOCYTES ABSOLUTE AUTO 1.31 K/mm3 (0.16-1.47); MONOCYTES PERCENT AUTO 11 % (4-13); Mean Corpuscular HGB 37.8 pg (26.0-34.0); Mean Corpuscular HGB Conc 31.2 g/dL (31.5-36.5); Mean Corpuscular Volume 121 fL (80-100); Mean Platelet Volume 10.1 fL (9.1-12.4); NEUTROPHILS ABSOLUTE AUTO 8.31 K/mm3 (1.96-9.15); NEUTROPHILS PERCENT AUTO 71 % (41-73); NRBC ABSOLUTE 0.11 K/mm3 (0.00-0.02); NRBC Auto 0.9 /100 WBC (0.0-0.2); Platelet Count 132 K/mm3 (150-400); RDW Coefficient Variation 19.8 % (11.7-14.2); RDW Standard Deviation 87.6 fL (35.1-46.3); Red Blood Cell Count 2.67 M/mm3 (4.30-5.90); White Blood Cell Count 11.76 K/mm3 (4.00-11.30)
[2024-05-25 04:30] VITALS: BP 110/73
[2024-05-25 04:40] LABS: Base Excess Venous 10.7 mmol/L; Bicarbonate Venous 32.6 mmol/L (24.0-30.0); PCO2 Venous 73.8 mmHg (38-42); pH Blood Venous 7.31 (7.34-7.37)
[2024-05-25 04:42] LABS: Albumin, Blood 2.1 g/dL (3.4-5.0); Albumin/Globulin Ratio 0.5 (0.8-1.8); Bilirubin, Total 3.5 mg/dL (0.1-1.0); Bun/Creatinine Ratio 46.6 (12.0-20.0); Calcium, Blood 9.2 mg/dL (8.5-10.1); Creatinine, Blood 0.47 mg/dL (0.60-1.20); Globulin, Blood 4.4 g/dL (2.2-4.0); Potassium, Blood 4.6 mmol/L (3.5-5.5); Total Protein, Blood 6.5 g/dL (6.4-8.2)
--- NOTE | 2024-05-25 05:58 | NUR ---
SHIFT SUMMARY PATIENT ALERT AND ORIENTED X3-4. WAS LETHARGIC AT BEGINNING OF SHIFT, MENTATION IMPROVED OVERNIGHT. PATIENT REFUSES TO PARTICIPATE IN CARE. ENDED UP CALLING 911 BECAUSE HE COULD NOT FIND HIS GLASSES. CURRENTLY ON 1 LITER O2 VIA NC WITH SPO2 >90%. PATIENT WORE BIPAP FOR A COUPLE HOURS BEFORE REFUSING IT. VITAL SIGNS STABLE. WILL CONTINUE TO MONITOR. CALL LIGHT WITHIN REACH.
[2024-05-25 07:27] VITALS: BP 105/86
--- NOTE | 2024-05-25 08:46 | NUR ---
Pt is obtunded. Bipap mask was removed by patient, presumably inadvertently. He is not meaningfully responsive. Replaced Bipap with assistance of RT at this time. Pt's wallet noted on bedside table, placed in ziplock back with patient's label and locked in pt's medication drawer. Primary RN Niharika notified.
[2024-05-25 12:01] VITALS: BP 122/77
[2024-05-25 12:11] LABS: Base Excess Venous 11.4 mmol/L; PCO2 Venous 69.5 mmHg (38-42); pH Blood Venous 7.34 (7.34-7.37)
[2024-05-25] MEDS ORDERED: NS 1,000 ML IV SCH (13:40)
[2024-05-25 15:33] VITALS: BP 113/85
--- NOTE | 2024-05-25 17:22 | NUR ---
SHIFT SUMMARY: NEURO: PATIENT DROWSY THROUGHOUT THE DAY. ABLE TO STAY AWAKE DURING INTERACTIONS WITH STAFF. PATIENT HAS MUMBLED SPEECH. PATIENT WILL CALL OUT FOR HELP. PATIENT WORKED WITH PT TO STAND AT THE BEDSIDE. PATIENT DECLINED SPEECH THERAPY. PATIENT IS WEAK IN ALL FOUR EXTREMITIES. RESPIRATORY: PATIENT ON BIPAP TOLERATED. PATIENT REPORTED THAT THE NEW MASK WAS AN IMPROVEMENT. PATIENT TOLERATED THE BIPAP FOR 2-3 HOURS AT A TIME. OTHERWISE, PATIENT STABLE ON 2L VIA NC. SPO2 >90%. PATIENT DID REPORT SHORTNESS OF BREATH AT ONE POINT THIS AFTERNOON THAT WAS RESOLVED WITH THE BIPAP. CARDIAC: PATIENT'S VITALS STABLE WITH MAPS >65. AFIB PRESENT DURING THE SHIFT. HR IN THE 80S-100S. GI/: URINE OUTPUT IS AUGUSTO. PUREWICK IN PLACE. OF THIS NOTE, PATIENT HAS HAD ONE BOWEL MOVEMENT, BROWN, SOFT, SMALL. PATIENT REPORTS THAT HE IS NOT HUNGRY. PSYCHSOCIAL: PATIENT CAN BE IRRITABLE AND ANXIOUS AT TIMES. FOR THE MOST PART, PATIENT COOPERATIVE WITH CARE. FOR EXAMPLE, PATIENT DID TAKE OFF THE BIPAP MASK AT TIMES, BUT ALLOWED STAFF TO REPLACE IT AT TIMES.
[2024-05-25] MEDS ORDERED: NS 500 ML IV ONE (18:05)
[2024-05-25 21:00] VITALS: BP 126/87
[2024-05-25 23:45] VITALS: BP 130/100
[2024-05-26] MEDS ORDERED: Albumin (Human) 25gm/100ml 100 ML IV ONE ×2 (03:50→12:00)
[2024-05-26 03:55] VITALS: BP 112/75
[2024-05-26 04:05] LABS: BASOPHILS ABSOLUTE AUTO 0.11 K/mm3 (0.00-0.23); BASOPHILS PERCENT AUTO 1 % (0-2); EOSINOPHILS ABSOLUTE AUTO 0.12 K/mm3 (0.00-0.68); EOSINOPHILS PERCENT AUTO 1 % (0-6); Hematocrit 28.8 % (37.0-53.0); Hemoglobin 9.1 g/dL (13.5-17.5); IMMATURE GRAN ABSOLUTE AUTO 0.17 K/mm3 (0.00-0.10); IMMATURE GRAN PERCENT AUTO 2 % (0-1); LYMPHOCYTES ABSOLUTE AUTO 1.24 K/mm3 (0.84-5.20); LYMPHOCYTES PERCENT AUTO 12 % (21-46); MONOCYTES ABSOLUTE AUTO 0.85 K/mm3 (0.16-1.47); MONOCYTES PERCENT AUTO 8 % (4-13); Mean Corpuscular HGB 38.2 pg (26.0-34.0); Mean Corpuscular HGB Conc 31.6 g/dL (31.5-36.5); Mean Corpuscular Volume 121 fL (80-100); Mean Platelet Volume 9.9 fL (9.1-12.4); NEUTROPHILS PERCENT AUTO 77 % (41-73); NRBC ABSOLUTE 0.07 K/mm3 (0.00-0.02); NRBC Auto 0.7 /100 WBC (0.0-0.2); Platelet Count 157 K/mm3 (150-400); RDW Coefficient Variation 20.1 % (11.7-14.2); RDW Standard Deviation 89.4 fL (35.1-46.3); Red Blood Cell Count 2.38 M/mm3 (4.30-5.90); White Blood Cell Count 10.69 K/mm3 (4.00-11.30)
[2024-05-26 04:41] LABS: Albumin, Blood 2.2 g/dL (3.4-5.0); Albumin/Globulin Ratio 0.5 (0.8-1.8); Bilirubin, Total 3.5 mg/dL (0.1-1.0); Bun/Creatinine Ratio 38.4 (12.0-20.0); Calcium, Blood 9.3 mg/dL (8.5-10.1); Creatinine, Blood 0.68 mg/dL (0.60-1.20); Globulin, Blood 4.2 g/dL (2.2-4.0); Magnesium, Blood 1.5 mg/dL (1.6-2.4); Phosphorus, Blood 2.7 mg/dL (2.5-4.9); Potassium, Blood 4.1 mmol/L (3.5-5.5); Total Protein, Blood 6.4 g/dL (6.4-8.2)
--- NOTE | 2024-05-26 05:45 | NUR ---
SHIFT SUMMARY PATIENT ALERT AND ORIENTED X3. LACKS MOTIVATION IN PARTICIPATING WITH CARE. HAD NO COMPLAINTS OF PAIN. CURRENTLY ON 2 LITERS O2 VIA NC WITH SPO2 >90%. WORE BIPAP MUCH OF THE NIGHT ALTHOUGH RESISTANT AT TIMES. VITAL SIGNS STABLE, AFIB ON TELE. WILL CONTINUE TO MONITOR. CALL LIGHT WITHIN REACH.
[2024-05-26 07:41] VITALS: BP 124/80
[2024-05-26] MEDS ORDERED: Mag Sulfate 1 GM/D5% 100ML 100 ML IV STA (10:41)
--- NOTE | 2024-05-26 10:52 | NUR ---
THIS RN ATTEMPTED TO CALL MOTHER SHE CALLED ON BREAK BUT WAS NOT REACHABLE. VOICEMAIL WAS LEFT TO GIVE A CALL BACK WHEN ABLE.
[2024-05-26] MEDS ORDERED: ZINC OXIDE/PETROLATUM, YELLOW 1 APPLIC/71 GM PASTE TOP PRN (11:05)
[2024-05-26] MEDS ORDERED: Lactulose 20 GM/30 ML UDC PO SCH (12:00)
[2024-05-26 12:04] LABS: International Normalized Ratio 1.28; Prothrombin Time Results 13.4 Sec (9.7-11.5)
[2024-05-26 12:15] LABS: Albumin, Blood 2.4 g/dL (3.4-5.0)
[2024-05-26 13:25] VITALS: BP 129/92
--- NOTE | 2024-05-26 15:03 | NUR ---
PATIENT BROTHER AT BEDSIDE. BIPAP MACHINE WAS TAKEN OFF AND IS AWAKE AND ALERT, CONVERSING WITH PATIENT.
--- NOTE | 2024-05-26 17:04 | NUR ---
Met with pt this morning, he had a flat affect, closed his eyes and turned his head away when spoken to. Spoke with pt's mom today by phone, discussed the patient's chronic alcoholism; mom states he has been drinking heavily since he was 14 years old. Pt's brother Dickson also came for a visit today. He stated this is the first time he has seen his brother in several years. Trinity the roommate was also present at the bedside. I told the patient I was concerned for him, stating if he doesn't move and doesn't eat or drink, he will not recover, and could end up dying. He did not respond. Spoke with Dr. Milan, relayed my concerns. She states the same concerns. Will continue to offer support.
--- NOTE | 2024-05-26 17:15 | NUR ---
SHIFT SUMMARY: PATIENT IS ALERT AND ORIENTED TO SELF, PERSON AND KNOWS HE IS IN THE HOSPITAL. WAS NOT ABLE TO GIVE DATE. PATIENT IS ON TELE SHOWING AFIB WITH RATE IN 100'S. SATTING >92% ON BIPAP WHEN SLEEPING AND 3 LITERS VIA NASAL CANNULA. PATIENT TOLERATED THE BIPAP TODAY WELL AND ONLY NEEDED GENTLE REMINDERS THAT HE NEEDED IT FOR HIS CO2 LEVELS. MD CAME BY EARLY THIS MORNING, DC'D FLUIDS AND ORDERED SOME DIFFERENT MEDICATIONS THAT WERE GIVEN PER EMAR. PATIENT BROTHER AND ROOMATE WERE AT BEDSIDE AND WERE ABLE TO TALK TO PALLIATIVE CARE. SEE THOSE NOTES. A RECTAL TUBE WAS PLACED TODAY PATIENT LACTULOSE WAS INCREASED TO Q4 PER EMAR. PPN WILL BE STARTED PER DIETIAN ON 05.27.24. PATIENT DID NOT WANT TO WORK WITH PHYSICAL THERAPY TODAY AND NEEDED LOTS OF ENCOURAGEMENT TO TAKE THINGS IN ORALLY. WILL CONTINUE TO MONITOR UNTIL SHIFT CHANGE AND COMMISSARY SUPERINTENDENT RN TAKES OVER.
[2024-05-26] MEDS ORDERED: TPN Consult Notification XX ONE (17:20)
--- NOTE | 2024-05-26 17:44 | NUR ---
Pt's wallet was given to the pt's girlfriend/roommate this evening when she came to visit. She is in the room with Dr. Milan at this time.
[2024-05-26 17:56] VITALS: BP 949/60
[2024-05-26] MEDS ORDERED: Thiamine HCl 500 MG in NS 100 ML IV SCH (18:00)
[2024-05-26 20:22] VITALS: BP 113/76
[2024-05-26 20:48] LABS: Prealbumin, Blood 5.4 mg/dL (20.0-40.0)
[2024-05-26] MEDS ORDERED: NS 500 ML IV SCH (20:50)
--- NOTE | 2024-05-26 21:31 | NUR ---
RN NOTE PT CURRENTLY NONCOMPLIANT WITH CPAP, REFUSING TO WEAR IT. PT EDUCATED ON RISKS & BENEFITS. PT CONTINUES TO REFUSE. CURRENTLY ON 5L O2 VIA NC, SPO2 96%
[2024-05-26 23:45] VITALS: BP 130/102
[2024-05-27 04:35] VITALS: BP 118/85
[2024-05-27 04:53] VITALS: BP 118/85
[2024-05-27 05:00] LABS: BASOPHILS PERCENT AUTO 1 % (0-2); EOSINOPHILS ABSOLUTE AUTO 0.06 K/mm3 (0.00-0.68); EOSINOPHILS PERCENT AUTO 1 % (0-6); Hemoglobin 8.9 g/dL (13.5-17.5); IMMATURE GRAN ABSOLUTE AUTO 0.12 K/mm3 (0.00-0.10); IMMATURE GRAN PERCENT AUTO 1 % (0-1); LYMPHOCYTES ABSOLUTE AUTO 1.49 K/mm3 (0.84-5.20); LYMPHOCYTES PERCENT AUTO 13 % (21-46); MONOCYTES ABSOLUTE AUTO 0.82 K/mm3 (0.16-1.47); MONOCYTES PERCENT AUTO 7 % (4-13); Mean Corpuscular HGB 38.2 pg (26.0-34.0); Mean Corpuscular HGB Conc 30.7 g/dL (31.5-36.5); Mean Corpuscular Volume 125 fL (80-100); Mean Platelet Volume 10.4 fL (9.1-12.4); NEUTROPHILS PERCENT AUTO 77 % (41-73); NRBC ABSOLUTE 0.05 K/mm3 (0.00-0.02); NRBC Auto 0.5 /100 WBC (0.0-0.2); Platelet Count 157 K/mm3 (150-400); RDW Coefficient Variation 20.1 % (11.7-14.2); RDW Standard Deviation 91.6 fL (35.1-46.3); Red Blood Cell Count 2.33 M/mm3 (4.30-5.90); White Blood Cell Count 11.09 K/mm3 (4.00-11.30)
--- NOTE | 2024-05-27 05:00 | NUR ---
SHIFT SUMMARY PT AFFECT IS FLAT & WITHDRAWN. MINIMAL PARTICIPATION WITH CARES/CONVERSATION. REFUSING TO WEAR CPAP. SPEECH MUMBLED AT BEST, UNABLE TO PARTICIPATE IN MEANINGFUL COMMUNICATION WITH THIS RN. FREQUENTLY MOANS/GROANS, DENIES PAIN. PT'S ABD IS DISTENDED, TYMPANY WITH PERCUSSION OF ABD. FECAL MANAGEMENT SYSTEM IN PLACE, DRAINING BY GRAVITY. LIQUID STOOLS ON LACTULOSE. MALE PUREWICK IN PLACE, DRAINING BY SUCTION, TEA/DARK AUGUSTO COLORED URINE. NO ACUTE EVENTS OVERNIGHT.
[2024-05-27 07:07] LABS: Alanine Aminotransfer (ALT/SGP 129 U/L (12-78); Albumin, Blood 2.7 g/dL (3.4-5.0); Albumin/Globulin Ratio 0.7 (0.8-1.8); Alk Phos 151 U/L (50-136); Anion Gap 10 mmol/L (3-11); Aspartate Aminotrans (AST/SGOT 219 U/L (12-37); Bilirubin, Total 3.8 mg/dL (0.1-1.0); Blood Urea Nitrogen 26 mg/dL (8-24); Bun/Creatinine Ratio 39.8 (12.0-20.0); CO2, Blood 32 mmol/L (21-32); Calcium, Blood 9.6 mg/dL (8.5-10.1); Chloride, Blood 106 mmol/L (98-108); Creatinine, Blood 0.65 mg/dL (0.60-1.20); Glomerular Filtration Rate 110 (60-); Glucose, Blood 101 mg/dL (70-99); Magnesium, Blood 1.8 mg/dL (1.6-2.4); Phosphorus, Blood 3.5 mg/dL (2.5-4.9); Potassium, Blood 3.8 mmol/L (3.5-5.5); Sodium, Blood 144 mmol/L (136-145); Total Protein, Blood 6.7 g/dL (6.4-8.2); Triglycerides 89 mg/dL (30-160)
[2024-05-27 08:05] VITALS: BP 103/81
--- NOTE | 2024-05-27 08:22 | NUR ---
"Spiritual Care Consult | Pt. request Pt. is awake when I visit. Pt. cannot communicate words, though he displays evidence of trying, and also displays evidence of frustration. This is very different from his ability to respond in our previous visit. Communication is limited through the visit. Prayed with Pt. and assisted by getting his call button/TV speaker within reach. Will remain available to the Pt."
[2024-05-27] MEDS ORDERED: Promethazine HCl 25 MG Supp PR PRN (10:05)
[2024-05-27] MEDS ORDERED: LORazepam 2 MG/ML 1ML Injection IV PRN (10:10)
[2024-05-27] MEDS ORDERED: Promethazine HCl 25 MG Tab PO PRN (10:10)
[2024-05-27] MEDS ORDERED: Acetaminophen 325 MG TABLET PO PRN (10:10)
[2024-05-27] MEDS ORDERED: LORazepam 1 MG Tab PO PRN (10:10)
[2024-05-27] MEDS ORDERED: Morphine Sulfate 20 MG/1ML 1 ML Oral Syringe SL PRN (10:10)
[2024-05-27] MEDS ORDERED: Atropine Sulfate 1% Opth Soln 2ML BTL SL PRN (10:10)
[2024-05-27] MEDS ORDERED: Scopolamine Hydrobromide Patch TOP PRN (10:15)
[2024-05-27] MEDS ORDERED: Morphine Sulfate 10 MG/ML 1MLSYR IV PRN (10:15)
[2024-05-27] MEDS ORDERED: HYDROmorphone HCl/Pf 1MG SYR IV PRN (10:15)
[2024-05-27] MEDS ORDERED: Ondansetron HCl 2 MG / ML 2ML Vial IV PRN (10:15)
[2024-05-27] MEDS ORDERED: Haloperidol Lactate Inj. 5 MG/ML Injection IV PRN (10:15)
[2024-05-27] MEDS ORDERED: Haloperidol Lactate 2 MG / ML 15ML BTL PO PRN (10:15)
--- NOTE | 2024-05-27 11:59 | NUR ---
Pt being placed on comfort care by Dr. Milan. Family and roommate are aware. Pt's brother was at bedside this am, tearful and v/u that pt is transitioning. He is going to return home today, planning to return to spend time with pt tomorrow. He states appreciation for words of comfort and support from staff. Pt appears comfortable at this time. Noted audible crackles with respiration, [address] Comfort orders being placed. He is speaking very little, becoming obtunded. Will continue to offer support to family and roommate, and assist bedside RN as needed with symptom management.
--- NOTE | 2024-05-27 13:43 | NUR ---
"Spiritual Care | Comfort Care Visit. Pt. is on comfort care and mostly not repsonsive. SO is at bedside and welcomes my visit. facilitated a life review and listened with interest and empathy. 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 SO displayed evidence of trust. Prayed with SO and also prayed for Pt. Will remain available to the Pt. and family."
[2024-05-27] MEDS ORDERED: [UNRECOGNIZED DRUG - OTHER] IV SCH (17:00)
[2024-05-27] MEDS ORDERED: PARENTERAL ELECTOLYTES POTASSIUM PHOSPHATE DIBASIC MM MULTIVITAMINS IV SCH (17:00)
[2024-05-27] MEDS ORDERED: [UNRECOGNIZED DRUG - OTHER] IV SCH (17:00)
--- NOTE | 2024-05-27 17:33 | NUR ---
"Spiritual Care | EOL Pt. is declining quickly when this cold water machine operator arrives at bedside. Scripture is read, Prayers are given. ALF was called soon after. EOL decisions will be made when Pts. roommate Reeca arrives. Confirmed with PCU charge nurse."
--- NOTE | 2024-05-27 17:47 | NUR ---
SHIFT SUMMERY: PT ALTERED AND NOT RESPONDING TO STAFF. PT MOANING AND GROANING. NOT FOLLOWING ANY COMMANDS. BROTHER AT BEDSIDE. DR DOOLEY CAME AND TALKED TO BROTHER ABOUT TRANSITIONING PT TO COMFORT CARE. FAMILY DECIDED TO CHANGE PT TO COMFORT CARE STATUS AROUND 1000. PT PASSED THIS EVENING. TOD 1636. FAMILY NOTIFIED AND WOULD LIKE [facility].
--- NOTE | 2024-05-28 03:32 | NUR ---
SUMMARY OF EVENTS ORGAN TEAM DEEMED PT ACCEPTABLE TO [facility]ATE [facility]. PROCUREMENT TECH FINISHED PROCEDURE AROUND 0245. [facility] REMOVED PT @0325. BELONGINGS WITH PT/ HOME. EDUCATED FAMILY ON PROCEDURE WITH HOME.
== END 2024-05-28 03:30 | DRG 871 ==
LOC: ER 20:30 → PCU 23:57 → ICUE 23:57 → PCU 05-20 16:07 → MEDS 05-24 12:24 → PCU 05-24 18:42
PROVIDERS: Family Medicine; Student in an Organized Health Care Education/Training Program; ADMIT Student in an Organized Health Care Education/Training Program
PROC: 3E03329 Introduction of Other Anti-infective into Peripheral Vein, Percutaneous Approach (ICD-10-PCS; 2024-05-18)
PROC: 5A09457 Assistance with Respiratory Ventilation, 24-96 Consecutive Hours, Continuous Positive Airway Pressure (ICD-10-PCS; principal; 2024-05-24)
PROC: 30233J1 Transfusion of Nonautologous Serum Albumin into Peripheral Vein, Percutaneous Approach (ICD-10-PCS; 2024-05-24)
DX: A41.9 Sepsis, unspecified organism (principal); J18.9 Pneumonia, unspecified organism; J96.01 Acute respiratory failure with hypoxia; J96.02 Acute respiratory failure with hypercapnia; E87.1 Hypo-osmolality and hyponatremia; N39.0 Urinary tract infection, site not specified; E87.20 Acidosis, unspecified; E87.29 Other acidosis; I48.20 Chronic atrial fibrillation, unspecified; J90 Pleural effusion, not elsewhere classified; Z66 Do not resuscitate; Z51.5 Encounter for palliative care; R65.20 Severe sepsis without septic shock; K70.11 Alcoholic hepatitis with ascites; I87.2 Venous insufficiency (chronic) (peripheral); L89.301 Pressure ulcer of unspecified buttock, stage 1; E83.42 Hypomagnesemia; I77.810 Thoracic aortic ectasia; K76.82 Hepatic encephalopathy; F41.8 Other specified anxiety disorders; F10.20 Alcohol dependence, uncomplicated; E83.39 Other disorders of phosphorus metabolism; E83.51 Hypocalcemia; Z98.890 Other specified postprocedural states; Z79.899 Other long term (current) drug therapy; Z87.891 Personal history of nicotine dependence
CPT/HCPCS: 36415; 36416; 71045; 71046; 71260; 74018; 76705; 80048; 80053; 80074; 80076; 80202; 80320; 81001; 82040; 82140; 82248; 82330; 82550; 82607; 82728; 82746; 82803; 82947; 83540; 83550; 83605; 83735; 83880; 83930; 83935; 84100; 84134; 84145; 84295; 84300; 84443; 84478; 84484; 85025; 85379; 85520; 85610; 85730; 87040; 87081; 87086; 92526; 92610; 93005; 93010; 94660; 94760; 94762; 96365; 96375; 97110; 97116; 97162; 97166; 97530; 99285-25; A9270; C1751; C8929; G0480; J0456; J0696; J1171; J1644; J1650; J1940; J2060; J2470; J3370; J3411; J3475; J7030; J7040; J7050; P9047; Q9957; Q9967